=== PATIENT | male | born 1995 | race Caucasian/White ===

== ENCOUNTER 2021-07-10 07:50 | Outpatient (CLI) | payer OTHER, SELFPAY ==
--- NOTE | ~2021-07-10 | MR_ITS ---
EXAMINATION: MR knee LT wo con DATE: 07/10/2021 08:26 INDICATION: Anterior and lateral left knee pain after running. Patellar disorder. TECHNIQUE: Magnetic resonance imaging (MRI) of the left knee was performed without intravenous contra st. Sequences included coronal PD-weighted FSE, coronal PD-weighted FS FSE, sagittal T2-weighted FSE , sagittal PD-weighted FS FSE and axial PD weighted fat saturated FSE. COMPARISON: Left knee radiographs dated 06/27/2021 FINDINGS: Medial compartment: Small longitudinal vertical tear contacting the inferior articular surface for approximately 1 cm in length at the peripheral red zone at the junction of the body and posterior horn of the medial menisc us. Articular cartilage is normal. Lateral compartment: There is an additional small longitudinal tear extending 1.3 cm in medial to lateral length along the peripheral inferior margin of the posterior horn of the lateral meniscus along the meniscal attachme nt of the posterior inferior popliteal meniscal fascicle. Articular cartilage is normal. Patellofemoral compartment: Articular cartilage is normal. Ligaments and tendons: Anterior and posterior cruciate ligaments are normal. The medial collateral ligament and fibular ismael ateral ligament complex are normal. The extensor mechanism is normal. The visualized medial and later al hamstring tendons as well as the iliotibial band are normal. Fluid: Minimal left knee joint effusion at the suprapatellar pouch. No loose osteochondral bodies identifie d. Osseous/other: Normal marrow signal. No fracture or abnormal marrow replacing process. There is a suprapatellar plic al band at the inferior aspect of the suprapatellar pouch which appears mildly thickened medially. No abnormal edema in the adjacent deep or superficial suprapatellar fat pads. IMPRESSION: 1. Small tear at the periphery of the posterior horn of the lateral meniscus involving the attachment of the posterior inferior popliteal meniscal fascicle. 2. Similar small tear at the peripheral inferior margin of the junction of the body and posterior hor n of the medial meniscus. 3. Suprapatellar plical band with mild thickening medially without evident edema of the adjacent supr apatellar fat pads or appreciable patellofemoral chondromalacia. Reviewed, dictated and finalized at location D. IMPRESSION: 1. Small tear at the periphery of the posterior horn of the lateral meniscus in volving the attachment of the posterior inferior popliteal meniscal fascicle. 2. Similar small tear at the peripheral inferior margin of the junction of the body and posterior horn of the medial meniscus. 3. Suprapatellar plical band with mild thickening medially without evident zane a of the adjacent suprapatellar fat pads or appreciable patellofemoral chondrom alacia.
== END 2021-07-10 07:51 ==
PROVIDERS: PCP Family Medicine; Visit Provider Physician Assistant Surgical
DX: M22.90 Unspecified disorder of patella, unspecified knee (principal); S83.222A Peripheral tear of medial meniscus, current injury, left knee, initial encounter
CPT/HCPCS: 73721

== ENCOUNTER 2024-02-06 15:13 | Outpatient (CLI) | payer OTHER, SELFPAY ==
--- NOTE | ~2024-02-06 | XR_ITS ---
EXAMINATION: XR chest 2V 02/06/2024 15:21 INDICATION: Midsternal chest pain PROCEDURE: 2 view chest COMPARISON: No prior studies for comparison. FINDINGS: The lungs are clear. The cardiomediastinal silhouette is within normal limits. There are no pleural effusions. There is no pneumothorax suspected. IMPRESSION: 1: NO ACUTE CARDIOPULMONARY DISEASE. Reviewed, dictated and finalized at location B. NERATOR OPERATOR
== END 2024-02-06 15:14 | disposition home or self-care (01) ==
LOC: GOSHIMG 15:14
PROVIDERS: PCP Family Medicine; Visit Provider Student in an Organized Health Care Education/Training Program
DX: R07.89 Other chest pain (principal)
CPT/HCPCS: 71046

== ENCOUNTER 2024-05-27 16:06 | Outpatient (CLI) | payer OTHER, SELFPAY ==
--- NOTE | ~2024-05-27 | XR_ITS ---
Right Knee Technique: AP, lateral, and sunrise views were obtained. Clinical History: Internal derangement Findings: No fracture or dislocation is seen. Osseous alignment is anatomic. Joint spaces are preserv ed without degenerative or erosive change. Soft tissues are unremarkable. No joint effusion is seen. Impression: Unremarkable right knee radiographs. Reviewed, dictated and finalized at location . Impression: Unremarkable right knee radiographs.
== END 2024-05-27 16:07 | disposition home or self-care (01) ==
LOC: GOSHIMG 16:07
PROVIDERS: PCP Family Medicine; Visit Provider Family Medicine
DX: M23.90 Unspecified internal derangement of unspecified knee (principal)
CPT/HCPCS: 73562

== ENCOUNTER 2024-06-10 08:38 | Outpatient (CLI) | payer OTHER, SELFPAY ==
--- NOTE | ~2024-06-10 | MR_ITS ---
MRI of the right knee Clinical history: Lateral pain Technique: Coronal proton density and proton density-weighted images, sagittal proton-density and T2 fat-sat images, and axial proton-density fat-saturated images were acquired. Findings: ACL extensively hyperintense and somewhat amorphous in appearance. Posterior cruciate ligam ent intact. Medial collateral ligament and the lateral collateral ligament complex are intact. Poplit eus tendon is intact. Medial and lateral menisci are intact, without evidence of tear. Articular cartilage is well preserved. There is extensive amorphous marrow edema in the proximal tibi a. There is focal amorphous marrow edema at the medial femoral condyle region. No fracture evident. Extensor mechanism is intact. There is minimal joint effusion. There is small Enriquez's cyst with proba ble partial cyst rupture. Impression: ACL is diffusely hyperintense and amorphous in appearance. This could reflect ACL sprain versus possi marie tear. Correlate clinically for ACL laxity. Extensive amorphous marrow edema in the proximal tibia and at the medial femoral condyle. Findings germain ggest bone contusions. No meniscal tear evident. Small joint effusion and small Enriquez cyst, as above. Reviewed, dictated and finalized at [facility]. Impression: ACL is diffusely hyperintense and amorphous in appearance. This could reflect A CL sprain versus possibly tear. Correlate clinically for ACL laxity. Extensive amorphous marrow edema in the proximal tibia and at the medial femora l condyle. Findings suggest bone contusions. No meniscal tear evident. Small joint effusion and small Enriquez cyst, as above.
== END 2024-06-10 08:39 | disposition home or self-care (01) ==
PROVIDERS: Visit Provider Family Medicine
DX: M23.611 Other spontaneous disruption of anterior cruciate ligament of right knee (principal); M25.461 Effusion, right knee; M71.21 Synovial cyst of popliteal space [Baker], right knee; M23.90 Unspecified internal derangement of unspecified knee
CPT/HCPCS: 73721